=== PATIENT | male | born 1995 | race Two or more races ===

== ENCOUNTER 2024-09-28 19:12 | Emergency (ER) | payer OTHER ==
[~2024-09-28] VITALS: Ht 185.4 cm; Wt 97.8 kg
[2024-09-28 20:12] VITALS: BP 176/63; PULSE 102; RESP 18; TEMP 97.8; O2SAT 98
[2024-09-28 20:35] LABS: Urine Bacteria None Seen /hpf (None Seen)
[2024-09-28 21:11] LABS: Urine Blood Negative /uL (Negative); Urine Clarity Clear (Clear); Urine Color Light-Yellow (Yellow); Urine Mucus FEW (None Seen); Urine Protein, UAD Negative (Negative); Urine Specific Gravity 1.023 (1.001-1.035); Urine Squamous Epithelial Cell None Seen /hpf (<5); Urine Urobilinogen Normal (Negative); Urine WBC 1 /HPF (0-3)
--- NOTE | 2024-09-28 21:15 | ED.PDOC ---
General HPI Comments 29-YEAR-OLD MALE PRESENTS TO ER WITH PENILE COMPLAINT X4 DAYS. PATIENT STATES HE HAS BEEN EXPERIENCING BURNING WITH URINATION AND WHITE PENILE DISCHARGE X4 DAYS. STATES THAT HIS SYMPTOMS STARTED SIX DAYS AFTER HE HAD UNPROTECTED SEX WITH A FEMALE WHO RECENTLY TESTED POSITIVE/WAS TREATED FOR CHLAMYDIA. DENIES ANY CURRENT PAIN. DENIES USE OF MEDICATIONS FOR CURRENT SYMPTOMS. PATIENT PRESENTS TO ER AMBULATORY ON ARRIVAL, WITH STEADY GAIT, IN NO DISTRESS. DENIES FEVER, BODY ACHES, CHILLS, JOINT PAIN, ABDOMINAL/PELVIC PAIN, BACK/FLANK PAIN, FURTHER CHANGES IN URINATION, RASH/SKIN CHANGES OR ANY FURTHER SYMPTOMS/COMPLAINTS Chief Complaint: Penile Discharge Time Seen by MD: 19:32 Primary Care Provider: JOI Reviewed notes: Nurses Notes, Medications, Allergies Allergies: Coded Allergies: NO KNOWN ALLERGIES (Unverified , 09/28/24) Information Source: Patient Mode of Arrival: Ambulatory Past Medical History PAST MEDICAL HISTORY: Denies Surgical History: Denies all surgeries Family History Family History: Unknown Social History Smoker: Non-Smoker Alcohol: Denies ETOH Use Drugs: Denies Drug Use Lives In: Home Constitutional: denies: chills, diaphoresis, fatigue, fever, malaise, sweats, weakness, others EENTM: denies: blurred vision, double vision, ear bleeding, ear discharge, ear drainage, ear pain, ear ringing, eye pain, eye redness, hearing loss, mouth pain, mouth swelling, nasal discharge, nose bleeding, nose congestion, nose pain, photophobia, tearing, throat pain, throat swelling, voice changes, others Respiratory: denies: cough, hemoptysis, orthopnea, SOB at rest, shortness of breath, SOB with excertion, stridor, wheezing, others Cardiovascular: denies: chest pain, dizzy spells, diaphoresis, Dyspnea on exertion, edema, irregular heart beat, left arm pain, lightheadedness, palpi tations, PND, syncope, others Gastrointestinal: denies: abdomen distended, abdominal pain, blood streaked bowels, constipated, diarrhea, dysphagia, difficulty swallowing, hematemesis, melena, nausea, poor appetite, poor fluid intake, rectal bleeding, rectal pain, vomiting, others Genitourinary: reports: others ( STATED IN HPI) Neurological: denies: dizziness, fainting, headache, left sided numbness, left sided weakness, numbness, paresthesia, pre-existing deficit, right sided numbness, right sided weakness, seizure, speech problems, tingling, tremors, weakness, others Musculoskeletal: denies: back pain, gout, joint pain, joint swelling, muscle pain, muscle stiffness, neck pain, others Integumetry: denies: bruises, change in color, change in hair/nails, dryness, laceration, lesions, lumps, rash, wounds, others Allergic/Immunocompromised: denies: Difficulty Healing, Frequent Infections, Hives, Itching, others Hematologic/Lymphatic: denies: anemia, blood clots, easy bleeding, easy bruising, swollen glands, others Endocrine: denies: excessive hunger, excessive sweating, excessive thirst, excessive urination, flushing, intolerance to cold, intolerance to heat, unexplained weight gain, unexplained weight loss, others Psychiatric: denies: anxiety, bipolar disorder, depression, hopeless, panic disorder, schizophrenia, sleepless, suicidal, others Physical Exam General Appearance: No Apparent Distress HEENT: Normal ENT Inspection, PERRL/EOMI, Pharynx Normal, TMs Normal Neck: Full Range of Motion, Non-Tender, Normal Respiratory: Chest Non-Tender, Lungs Clear, No Accessory Muscle Use, No Respiratory Distress, Normal Breath Sounds Cardiovascular: No Murmur, No Gallop, Regular Rate/Rhythm Breast Exam: Deferred Gastrointestinal: Non Tender, No Pulsatile Mass, Soft Genitalia: Other (PATIENT UNCIRCUMCISED - NO PENILE DISCHARGE/SKIN CHANGES NOTED. UNREMARKABLE GENITALIA EXAMINATION) Pelvic: Deferred Rectal: Deferred Extremities: Normal capillary refill, Normal range of motion Neurologic: Alert, r&d engineer II-XII nml as Tested, No Motor Deficits, Normal Affect, Normal Mood, No Sensory Deficits Cerebellar Function: Normal Reflexes: Normal Skin: Dry, Normal Color, Warm Lymphatic: No Adenopathy Was a procedure done? Was a procedure done?: No Sedation Sedation?: No Differential Diagnosis Kidney stone (Female): N/A Urinary Problem (Male): Urinary Retention, UTI Urinary Problem (Female): Pyelonephritis X-Ray, Labs, Meds, VS Vital Signs Date Time Temp Pulse Resp B/P (MAP) Pulse Ox O2 Delivery O2 Flow Rate FiO2 09/28/24 20:12 97.8 102 18 176/63 (100) 98 97.8 09/28/24 20:12 Room Air 09/28/24 20:12 97.8 102 18 176/63 (100) 98 Lab Test 09/28/24 20:14 Range/Units Urine Color Light-yellow Yellow Urine Clarity Clear Clear Urine pH 6.0 5.0-9.0 Urine Specific [place] 1.023 1.001-1.035 Urine Protein Negative Negative Urine Ketones Trace Negative Urine Blood Negative Negative /uL Urine Nitrite Negative Negative Urine Bilirubin Negative Negative Urine Urobilinogen Normal Negative mg/dL Urine Leukocyte Esterase Negative Negative /uL Urine RBC None seen 0 - 3 /hpf Urine Microscopic WBC 1 0-3 /HPF Urine Squamous Epithelial Cells None seen <5 /hpf Urine Bacteria None seen None Seen /hpf Urine Mucus Few None Seen Urine Glucose Normal Normal mg/dL URINALYSIS REVIEWED WITHOUT ANY SIGNIFICANT ABNORMALITIES CHLAMYDIA/GONORRHEA AMPLIFICATION TEST ORDERED ROCEPHIN 1 G IM ORDERED AZITHROMYCIN 1 G P.O. ORDERED ADVISED TO AVOID SEXUAL INTERCOURSE FOR AT LEAST SEVEN DAYS ADVISED FOR RE-SCREENING OF CHLAMYDIA/GONORRHEA IN THREE MONTHS ADVISED TO DRINK PLENTY OF FLUIDS ADVISED TO FOLLOW UP WITH PCP IN 1-2 DAYS PATIENT VERBALIZED UNDERSTANDING AND AGREEABLE WITH CURRENT PLAN OF CARE ADVISED TO RETURN TO ER IMMEDIATELY IF SYMPTOMS WORSEN Time of 1ST Reevaluation: 20:44 Reevaluation 1ST: N/A Patient Education/Counseling: Diagnosis, Treatment, Prognosis, Need For Follow Up Family Education/Counseling: No Family Present Departure 1 Departure Time of Disposition: 21:12 Impression: Primary Impression: STD exposure Disposition: 01 HOME / SELF CARE / HOMELESS Condition: Stable Discharged With: Self Critical Care Note Critical Care Time?: No Stability Stability form required: No Heart Score Heart Score: Heart Score Response (Comments) Value History N/A 0 EKG N/A 0 Age N/A 0 Risk Factors N/A 0 Troponin N/A 0 Total 0 RORY BECKER Sep 28, 2024 21:15
[2024-09-28] MEDS: AZITHROMYCIN 250 MG TAB PO ONE (21:25)
[2024-09-28] MEDS: cefTRIAXone SOD 1,000 MG VL IM ONE (21:29)
[2024-09-30 14:06] LABS: Chlamydia Trachomatis, NAA Negative (Negative); Neisseria gonorrhoeae, NAA Negative (Negative)
== END 2024-09-28 21:38 | disposition home or self-care (01) ==
LOC: ER 19:12
DX: Z20.2 Contact with and (suspected) exposure to infections with a predominantly sexual mode of transmission (principal); R36.9 Urethral discharge, unspecified; R30.9 Painful micturition, unspecified
CPT/HCPCS: 81001; 87491; 87591; 96372; 99283; J0696